=== PATIENT | female | born 1980 | race Caucasian/White ===

== ENCOUNTER 2017-01-22 19:35 | Emergency (ER) | payer MEDICAID ==
[~2017-01-22 19:35] MED LIST: FLA500 PO; LAC PO; LEVAQUIN750 MG PO
[2017-01-22 22:38] VITALS: BP 122/84
== END 2017-01-22 22:30 | disposition home or self-care (01) ==
LOC: ED 19:35
DX: S61.411A Laceration without foreign body of right hand, initial encounter (principal); Z88.6 Allergy status to analgesic agent; W25.XXXA Contact with sharp glass, initial encounter; Y93.89 Activity, other specified; Y99.8 Other external cause status; Y92.89 Other specified places as the place of occurrence of the external cause
CPT/HCPCS: 90715; J2001